=== PATIENT | male | born 1960 | race Caucasian/White ===

== ENCOUNTER 2021-04-20 08:20 | Emergency (ER) | payer BC ==
[2021-04-20 08:25] VITALS: RESP 18; TEMP 98.6
--- NOTE | 2021-04-20 08:39 | ED ---
General Adult HPI - General Chief complaint: Extremity Problem,Nontraumatic Stated complaint: poss DVT rt leg Time Seen by Provider: 04/20/21 08:26 Source: patient, RN notes reviewed, old records reviewed Mode of arrival: ambulatory Limitations: no limitations - History of Present Illness Initial comments: 61-year-old male presenting with right groin pain, concern for DVT. He has a family history of hypercoagulable state, he is concerned that he may have felt a blood clot in his leg. He's been sailing over the past week and his had his leg in an odd position. Additionally he did do some new exercises and feel this may have contributed but is overall concerned about DVT. He has no chest pain or dyspnea. No abdominal pain. No nausea vomiting. No fever. No rash. - Related Data Allergies Allergy/AdvReac Type Severity Reaction Status Date / Time No Known Allergies Allergy Verified 04/20/21 08:25 Review of Systems ROS Statement: Those systems with pertinent positive or pertinent negative responses have been documented in the HPI. ROS Other: All systems not noted in ROS Statement are negative. Past Medical History Additional Past Medical History / Comment(s): Oartic valve issues History of Any Multi-Drug Resistant Organisms: None Reported Additional Past Surgical History / Comment(s): Prostates Past Psychological History: No Psychological Hx Reported Smoking Status: Never smoker Past Alcohol Use History: Occasional Past Drug Use History: None Reported General Exam Limitations: no limitations General appearance: alert, in no apparent distress Head exam: Present: atraumatic, normocephalic Eye exam: Present: normal appearance, PERRL ENT exam: Present: normal exam Neck exam: Present: normal inspection. Absent: tenderness, meningismus Respiratory exam: Present: normal lung sounds bilaterally. Absent: respiratory distress, wheezes Cardiovascular Exam: Present: regular rate, normal rhythm GI/Abdominal exam: Present: soft. Absent: distended, tenderness, guarding Extremities exam: Present: normal inspection, tenderness (Some pain with range of motion of the right hip on internal rotation with some lateral hip pain.), normal capillary refill, other (Supple pulses are intact.). Absent: calf tenderness Neurological exam: Present: alert, oriented X3, CN II-XII intact, normal gait. Absent: motor sensory deficit Course Vital Signs 04/20/21 08:21 Temperature 98.6 F Pulse Rate 80 Respiratory 18 Rate Blood Pressure 172/79 O2 Sat by Pulse 99 Oximetry Medical Decision Making - Medical Decision Making 61-year-old male with right leg pain concern for DVT. DVT ultrasound is performed which is negative. Patient's symptoms are more consistent with a musculoskeletal groin strain her hip strain. He is reassured. He will follow with his primary care physician. Disposition Clinical Impression: Hip strain Disposition: HOME SELF-CARE Condition: Good Instructions (If sedation given, give patient instructions): Groin Strain (ED) Is patient prescribed a controlled substance at d/c from ED?: No Referrals: None,Stated [Primary Care Provider] - 1-2 days Time of Disposition: 10:05
--- NOTE | 2021-04-20 09:51 | US ---
EXAMINATION TYPE: US venous doppler duplex LE RT DATE OF EXAM: 04/20/2021 8:36 AM COMPARISON: NONE CLINICAL HISTORY: ro dvt. pain SIDE PERFORMED: Right TECHNIQUE: The lower extremity deep venous system is examined utilizing real time linear array sonog linda with graded compression, doppler sonography and color-flow sonography. VESSELS IMAGED: Common Femoral Vein Deep Femoral Vein Greater Saphenous Vein * Femoral Vein Popliteal Vein Small Saphenous Vein * Proximal Calf Veins (* superficial vessels) Right Leg: Negative for DVT Grayscale, color doppler, spectral doppler imaging performed of the deep veins of the lower extremiti es. There is normal flow, compressibility, vascular waveforms. IMPRESSION: No sonographic evidence for deep vein thrombosis of the right lower extremity.
[2021-04-20 10:06] VITALS: BP 120/77; PULSE 76
== END 2021-04-20 10:20 | disposition home or self-care (01) ==
LOC: EC 08:20
DX: S76.011A Strain of muscle, fascia and tendon of right hip, initial encounter (principal); X58.XXXA Exposure to other specified factors, initial encounter
CPT/HCPCS: 99284